=== PATIENT | female | born 1945 | race African-American/Black ===

== ENCOUNTER 2019-07-19 20:29 | Inpatient (IN) | payer MEDICARE, MEDICAID ==
[~2019-07-19] VITALS: Ht 162.6 cm; Wt 103.5 kg
--- NOTE | 2019-07-19 20:45 | NUR ---
ED Nurse Note: pt presents to ED via ambulance, RA 70 for abd px, N/V/D. pt states that she has had 5 episodes of diarrhea today and her home property investor noticed bright red blood in her stool. pt c/o 02/19 bilat lower abd px. pt has bilat lower extremity weakness, and is bed bound.
[2019-07-19 20:58] VITALS: BP 118/65
[2019-07-19] MEDS ORDERED: Omnipaque-300 100ml vial INJ PRN (21:15)
[2019-07-19 21:53] LABS: HEMATOCRIT 27.7 % (37.0-47.0); HEMOGLOBIN 9.2 G/DL (12.0-16.0); MEAN CORPUSCULAR VOLUME 90 FL (80-99); PLATELET COUNT 138 K/UL (150-450); RED BLOOD COUNT 3.08 M/UL (4.20-5.40); RED CELL DISTRIBUTION WIDTH 12.7 % (11.6-14.8); WHITE BLOOD COUNT 13.1 K/UL (4.8-10.8)
[2019-07-19 22:04] LABS: ANION GAP 15 mmol/L (5-15); BLOOD UREA NITROGEN 45 mg/dL (7-18); CALCIUM 9.3 MG/DL (8.5-10.1); CARBON DIOXIDE 16 MMOL/L (21-32); CHLORIDE 108 MMOL/L (98-107); CREATININE 1.7 MG/DL (0.55-1.30); POTASSIUM 5.4 MMOL/L (3.5-5.1); SODIUM 139 MMOL/L (136-145)
[2019-07-19 22:10] LABS: INR 1.7 (0.9-1.1)
[2019-07-19 22:15] LABS: ALANINE AMINOTRANSFERASE 28 U/L (12-78); ALBUMIN 2.2 G/DL (3.4-5.0); ALBUMIN/GLOBULIN RATIO 0.4 (1.0-2.7); ALKALINE PHOSPHATASE 169 U/L (46-116); ASPARTATE AMINO TRANSFERASE 24 U/L (15-37); BILIRUBIN,TOTAL 0.3 MG/DL (0.2-1.0)
--- NOTE | 2019-07-19 22:25 | NUR ---
ED Nurse Note: pt trasnported down to CT via junior
[2019-07-19] MEDS ORDERED: Pantoprazole Inj IVP ONE (22:30)
--- NOTE | 2019-07-19 23:15 | Diagnostic Imaging Report ---
INDICATION: Abdominal pain TECHNIQUE: Continuous helical transaxial imaging of the abdomen and pelvis was obtained from the lung bases to the pubic symphysis. No intravenous contrast was administered. Coronal 2-D reformats were also obtained. Automatic Exposure Control was utilized. Total Dose length Product (DLP): 2121.[address] Dose Index Volume (CTDIvol): 34.6 mGy Comparison: none FINDINGS: Lungs: Streaky, mostly linear appearing densities noted at the left lung base associated with bronchiectasis and some retraction suggestive of scarring.. Trace pericardial fluid noted. Liver: Unremarkable Gallbladder/biliary system: There are suspected gallstones. No biliary ductal dilatation is identified.. Spleen: Unremarkable Pancreas: Unremarkable Kidneys: There is perinephric stranding present nonspecific. There is no evidence of hydronephrosis or radiopaque stones.. Adrenal glands: Unremarkable Bowel: There is a diverticulosis present within the left hemicolon. No definite diverticulitis appreciated. The appendix is normal. There is no evidence of bowel obstruction. Bladder: Unremarkable Aorta/IVC: Mild calcification of the aorta and iliac arteries demonstrated. IVC is relatively collapsed. Peritoneum: There is no free fluid. The uterus is enlarged secondary to calcified uterine fibroids the largest of which is on the left side measuring about 5 cm.. Bones: There is narrowing of intervertebral discs and accompanying endplate osteophyte formation. Hypertrophied facet joints also demonstrated. There is a slight convexity of the lumbar spine to the left. This could be positional or related to scoliosis. Generalized osteopenia noted. IMPRESSION: Gallstones suspected. Diverticulosis of colon. No definite diverticulitis. Perinephric stranding left worse than right, nonspecific. Arterial vascular disease Calcified uterine fibroids Degenerative changes of the spine as discussed above. Scarring at the left lung base. [facility] has communicated the preliminary results to the Emergency Department. Their findings are largely concordant with this report. Note: Evaluation of solid organs is limited on non contrast imaging. The CT scanner at [facility] is accredited by the [employer] and the scans are performed using dose optimization techniques as appropriate to a performed exam including Automatic Exposure control.
[2019-07-19 23:31] LABS: APPEARANCE,URINE CLOUDY; BILIRUBIN, URINE 1+ (NEGATIVE); GLUCOSE, URINE (UA) NEGATIVE (NEGATIVE); KETONES,URINE 1+ (NEGATIVE); LEUKOCYTE ESTERASE ,URINE 3+ (NEGATIVE); NITRITE,URINE NEGATIVE (NEGATIVE); PH,URINE 5 (4.5-8.0); PROTEIN,URINE 4+ (NEGATIVE); UROBILINOGEN,URINE 1 MG/DL (0.0-1.0)
[2019-07-19 23:32] LABS: COLOR,URINE YELLOW
--- NOTE | 2019-07-19 23:45 | NUR ---
ED Nurse Note: pt's grandson is at bedside
--- NOTE | 2019-07-19 23:47 | Diagnostic Imaging Report ---
Indication: Dyspnea Comparison: None A single view chest radiograph was obtained. Findings: There is obscuring of the lung bases due to soft tissue. Bone volumes appear low. The heart is probably enlarged. There is slight blunting of the left costophrenic angle. Bones are osteopenic. Aorta is calcified. IMPRESSION: Possible small left pleural effusion Apparent cardiomegaly Limited evaluation as discussed
[2019-07-20] VITALS (7 sets, daily range): BP systolic 92–119; BP diastolic 44–72
--- NOTE | 2019-07-20 | NUR ---
ED Nurse Note: pt remains tachy at 130 and BP is trending downward, currently 95/67, ERMD notified
--- NOTE | 2019-07-20 00:22 | NUR ---
ED Nurse Note: pt transferred to trauma room, BP 101/72
[2019-07-20] MEDS ORDERED: Metoprolol Tartrate 5mg/5ml Inj IVP ONE ×2 (00:30→01:00)
[2019-07-20] MEDS ORDERED: DITROPAN10 MG ORAL (02:48)
[2019-07-20] MEDS ORDERED: HYDROCHLOROTHIA25 MG ORAL (02:48)
[2019-07-20] MEDS ORDERED: AMLODIPINE BESYL5 MG ORAL (02:48)
[2019-07-20] MEDS ORDERED: LOSARTAN POTASS50 MG ORAL (02:48)
[2019-07-20] MEDS ORDERED: SIMVASTATIN40 MG ORAL (02:48)
--- NOTE | 2019-07-20 03:06 | NUR ---
ED Nurse Note: report given to KULDEEP Stacy.
--- NOTE | 2019-07-20 03:20 | NUR ---
NURSE NOTES: Received report from KULDEEP Stacy- pt. received transferred from ER- pt. in bed awake- confused- appears to be alert to name. book sorter placed, no Signs or symptoms of acute cardiac or respiratory distress noted, bed alarm on, side rails up x's 3 and safety brakes engaged, call light within easy reach, dl at bedside, full body assessment- skin intact- but pt. has resurfaced wound to rt. buttocks area, bed bath given- comfort measure provided, RAC 20G and LAC 20G both IVs intact and patent, pt. teaching done- and pt. oriented to room, safety measures continued, will continue with plan of care. Addendum: 07/20/19 at 0439 by GONZALEZ YUAN RN RN no evidence of bleeding noted.
--- NOTE | 2019-07-20 03:42 | NUR ---
NURSE NOTES: per potline monitor pt. appears to have converted to A.Fib- assessed pt. no distress or change noted- EKG done shows Sinus Tachycardia- will notify
--- NOTE | 2019-07-20 03:48 | Emergency Room Report ---
History of Present Illness General Chief Complaint: Abdominal Pain Source: Patient Present Illness HPI 74-year-old female presents ED for evaluation. Brought in by EMS from home. Complaining of abdominal pain with vomiting and diarrhea x1 week. Notes watery loose stools. Pain is sharp, 9 out of 10, nonradiating. States that today she noticed blood in her stool. Tachycardic. States she takes blood thinners. Does not recall the name. Denies fevers or chills. Denies chest pain. No other aggravating relieving factors. Denies any other associated symptoms Allergies: Uncoded Allergies: CODEIN (Allergy, Unknown, 07/19/19) Patient History Past Medical History: DM, HTN Past Surgical History: none Pertinent Family History: none Social History: Denies: smoking, alcohol use, drug use Now: No Immunizations: UTD Reviewed Nursing Documentation: PMH: Agreed; PSxH: Agreed Nursing Documentation-PMH Hx Hypertension: Yes Hx Diabetes: Yes Review of Systems All Other Systems: negative except mentioned in HPI Physical Exam Vital Signs Date Time Temp Pulse Resp B/P (MAP) Pulse Ox O2 Delivery O2 Flow Rate FiO2 07/19/19 20:21 98.2 112 18 118/65 (82) 98 Room Air 07/20/19 00:53 2.0 Sp02 EP Interpretation: reviewed, normal General Appearance: alert, GCS 15, non-toxic, mild distress, obese Head: normocephalic, atraumatic Eyes: bilateral eye normal inspection, bilateral eye PERRL ENT: hearing grossly normal, normal pharynx, no angioedema, normal voice Neck: full range of motion, supple/symm/no masses Respiratory: chest non-tender, lungs clear, normal breath sounds, speaking full sentences Cardiovascular #1: no edema, tachycardia Cardiovascular #2: 2+ carotid (R), 2+ carotid (L), 2+ radial (R), 2+ radial (L) , 2+ dorsalis pedis (R), 2+ dorsalis pedis (L) Gastrointestinal: normal bowel sounds, soft, non-distended, no guarding, no rebound, tenderness Rectal: deferred Genitourinary: normal inspection, no CVA tenderness Musculoskeletal: back normal, normal range of motion, gait/station normal, non- tender Neurologic: alert, motor strength/tone normal, oriented x3, sensory intact, responsive, speech normal Psychiatric: judgement/insight normal, memory normal, mood/affect normal, no suicidal/homicidal ideation Reflexes: 3+ bicep (R), 3+ bicep (L), 3+ tricep (R), 3+ tricep (L), 3+ knee (R) , 3+ knee (L) Skin: other - see nursing skin notes Lymphatic: no adenopathy Procedures Critical Care Time Critical Care Time i. I feel this is a highly complex case requiring extensive working including EKG/Rhythm strip, Xray/CT/US, Blood/urine lab work, repeat exams while in ED, and administration of strong opiates/narcotics for pain control, admission to hospital or close patient follow up. Total time: 60 min bedside evaluation and treatment excludes procedures (EKG). Reason for critical care: acidosis, sepsis, hypotension, colitis, atrial fibrillation Possible complications: hypotension, hypertension, ND, shock, arrhythmias, metabolic acidosis, end organ damage, respiratory failure. Interventions: Labs, IV fluids, EKG, chest x-ray, CT, 30 cc/kg fluid bolus. Trendelenburg, Lopressor, broad-spectrum antibiotics, ABG Course: Presenting with abdominal pain, diarrhea, blood in stool. On blood thinners. Labs show leukocytosis. BUN/creatinine elevated. Lactic elevated. UA positive. INR elevated. CT shows near lobe atelectasis. Chest x-ray shows retrocardiac consolidation. Initially hypotensive. Improved with IV fluid boluses. Trendelenburg. Developed A. fib with RVR. Given Lopressor with cardioversion achieved. Given broad-spectrum antibiotics. ABG shows acidosis. Consultations: nursing staff, EMS, family Performed by: Dr Loco Tolerated well condition = serious j. because of unstable vital signs this patient had a condition that could potentially threaten life or limb. I feel this is a critical patient who required my full attention while patient was considered critical. Total Critical Care Time excluding procedures was greater than 60 minutes Medical Decision Making Diagnostic Impression: Primary Impression: Colitis Additional Impressions: LGI bleed Sepsis Qualified Codes: A41.9 - Sepsis, unspecified organism Renal insufficiency Atrial fibrillation Qualified Codes: I48.91 - Unspecified atrial fibrillation Pneumonia Qualified Codes: J18.9 - Pneumonia, unspecified organism ER Course Hospital Course 74 yo f presents with diarrhea, blood in stool Differential diagnoses include: UGIB, LGIB, colitis, sepsis Clinical course Patient placed on stretcher. piling setter. After initial history and physical I ordered labs, IV fluids, EKG, CXR, CT Labs - noted leukocytosis, Hb/Hct stable. INR 1.7. BUN/Cr elevated. lactic 2.9 , UA+ bacteria EKG - sinus tachycardia no acute ischemic changes interpreted by me CXR - retrocardiac opacity CT A/P - no acute process, L posterior lobe consolidation On reassessment patient became tachycardic and hypotensive. EKG shows A. fib with RVR. Given Lopressor with cardioversion. Given 30 cc/kg fluid bolus. BP slowly improving. Given broad-spectrum antibiotics. Patient tachypneic. ABG performed. Shows acidosis but metabolic with compensation noted. O2 sats normal. Patient showing no signs of respiratory distress. Patient has [employer] insurance however not consider patient safe for transport at this time. Will admit here. Case discussed with Dr. Puri and he agreed to accept the patient to his service for further care and support I feel this is a highly complex case requiring extensive working including EKG/ Rhythm strip, Xray/CT/US, Blood/urine lab work, repeat exams while in ED, and administration of strong opiates/narcotics for pain control, admission to hospital or close patient follow up. Diagnosis - colitis, LGIB, sepsis, renal insufficiency, atrial fibrillation, pneumonia Patient admitted to telemetry in serious condition Labs Test 07/19/19 21:10 07/19/19 23:00 07/19/19 23:22 07/20/19 01:22 White Blood Count 13.1 K/UL (4.8-10.8) Red Blood Count 3.08 M/UL (4.20-5.40) Hemoglobin 9.2 G/DL (12.0-16.0) Hematocrit 27.7 % (37.0-47.0) Mean Corpuscular Volume 90 FL (80-99) Mean Corpuscular Hemoglobin 29.9 PG (27.0-31.0) Mean Corpuscular Hemoglobin Concent 33.2 G/DL (32.0-36.0) Red Cell Distribution Width 12.7 % (11.6-14.8) Platelet Count 138 K/UL (150-450) Mean Platelet Volume 7.2 FL (6.5-10.1) Neutrophils (%) (Auto) % (45.0-75.0) Lymphocytes (%) (Auto) % (20.0-45.0) Monocytes (%) (Auto) % (1.0-10.0) Eosinophils (%) (Auto) % (0.0-3.0) Basophils (%) (Auto) % (0.0-2.0) Differential Total Cells Counted 100 Neutrophils % (Manual) 78 % (45-75) Lymphocytes % (Manual) 10 % (20-45) Monocytes % (Manual) 3 % (1-10) Eosinophils % (Manual) 0 % (0-3) Basophils % (Manual) 1 % (0-2) Band Neutrophils 8 % (0-8) Platelet Estimate Decreased Platelet Morphology Normal Hypochromasia 1+ Anisocytosis 1+ Prothrombin Time 18.0 SEC (9.30-11.50) Prothromb Time International Ratio 1.7 (0.9-1.1) Activated Partial Thromboplast Time 84 SEC (23-33) Sodium Level 139 MMOL/L (136-145) Potassium Level 5.4 MMOL/L (3.5-5.1) Chloride Level 108 MMOL/L (98-107) Carbon Dioxide Level 16 MMOL/L (21-32) Anion Gap 15 mmol/L (5-15) Blood Urea Nitrogen 45 mg/dL (7-18) Creatinine 1.7 MG/DL (0.55-1.30) Estimat Glomerular Filtration Rate mL/min (>60) Glucose Level 286 MG/DL (74-106) Lactic Acid Level 2.90 mmol/L (0.4-2.0) 2.70 mmol/L (0.66-2.22) Calcium Level 9.3 MG/DL (8.5-10.1) Total Bilirubin 0.3 MG/DL (0.2-1.0) Aspartate Amino Transf (AST/SGOT) 24 U/L (15-37) Alanine Aminotransferase (ALT/SGPT) 28 U/L (12-78) Alkaline Phosphatase 169 U/L (46-116) Pro-B-Type Natriuretic Peptide 3323 pg/mL (0-125) Total Protein 7.4 G/DL (6.4-8.2) Albumin 2.2 G/DL (3.4-5.0) Globulin 5.2 g/dL Albumin/Globulin Ratio 0.4 (1.0-2.7) Urine Color Yellow Urine Appearance Cloudy Urine pH 5 (4.5-8.0) Urine Specific [place] 1.015 (1.005-1.035) Urine Protein 4+ (NEGATIVE) Urine Glucose (UA) Negative (NEGATIVE) Urine Ketones 1+ (NEGATIVE) Urine Blood 5+ (NEGATIVE) Urine Nitrite Negative (NEGATIVE) Urine Bilirubin 1+ (NEGATIVE) Urine Ictotest Negative (NEGATIVE) Urine Urobilinogen 1 MG/DL (0.0-1.0) Urine Leukocyte Esterase 3+ (NEGATIVE) Urine RBC Tntc /HPF (0 - 2) Urine WBC Tntc /HPF (0 - 2) Urine Squamous Epithelial Cells Moderate /LPF (NONE/OCC) Urine Bacteria Many /HPF (NONE) Arterial Blood pH 7.227 (7.350-7.450) Arterial Blood Partial Pressure CO2 36.0 mmHg (35.0-45.0) Arterial Blood Partial Pressure O2 108.4 mmHg (75.0-100.0) Arterial Blood HCO3 14.6 mmol/L (22.0-26.0) Arterial Blood Oxygen Saturation 97.3 % (95-100) Arterial Blood Base Excess -12.0 (-2-2) Chato Test Positive EKG Diagnostic Results Rate: tachycardiac Rhythm: other - afib with RVR ST Segments: no acute changes ASA given to the pt in ED: No Rhythm Strip Diag. Results EP Interpretation: yes Rhythm: no PVC's, no ectopy Chest X-Ray Diagnostic Results Chest X-Ray Diagnostic Results : Chest X-Ray Ordered: Yes # of Views/Limited/Complete: 1 View Indication: Shortness of Breath EP Interpretation: Yes Interpretation: no effusion, no pneumothorax, other - retrocardiac opacity Impression: Other - PNA Electronically Signed by: Electronically signed by Gerardo Loco MD CT/MRI/US Diagnostic Results CT/MRI/US Diagnostic Results : Imaging Test Ordered: CT A/P Impression CT ABDOMEN & PELVIS With Contrast: No prior exam for comparison. Diverticulosis with no signs of diverticulitis. Normal appendix. Dystrophic calcification within the uterus measuring 4.1 x 4.7 cm consistent with calcified uterine fibroid. Additional nodularities through the uterus consistent with smaller noncalcified uterine fibroids. Diffuse degenerative disease of the spine. Left posterior lower lobe atelectasis. Remainder of the lungs are clear. Normal cardiac size with coronary artery calcifications. Large hiatal hernia. High density in the gallbladder which could represent sludge versus tiny stones. Unremarkable liver, spleen and pancreas. Normal adrenal glands. Bilateral perinephric stranding, more severe on the left compared to the right. No evidence of hydronephrosis bilaterally. Last Vital Signs Date Time Temp Pulse Resp B/P (MAP) Pulse Ox O2 Delivery O2 Flow Rate FiO2 07/20/19 01:05 115 104/48 07/20/19 01:05 31 100 Nasal Cannula 2.0 07/20/19 00:21 98.2 Status: improved Disposition: ADMITTED INPATIENT Condition: Serious Referrals: [facility] (PCP) Gerardo Loco MD Jul 20, 2019 03:48
--- NOTE | 2019-07-20 04:56 | NUR ---
NURSE NOTES: left message for DR. Puri, awaiting for call back for admission orders- per DR. Puri- he will call back.
--- NOTE | 2019-07-20 05:04 | NUR ---
NURSE NOTES: orders received by DR. Puri- orders read back and carried out.
--- NOTE | 2019-07-20 05:13 | NUR ---
NURSE NOTES: awaiting for dl Olivares to call back- to go over medication list.
--- NOTE | 2019-07-20 05:14 | NUR ---
NURSE NOTES: DR. Puri aware we will call back once grandson comes back to go over medication list- Also doctor made aware of potassium trending up.
[2019-07-20] MEDS ORDERED: D5 1/2NS 1,000 ML IV SCH ×2 (05:15→06:34)
[2019-07-20] MEDS ORDERED: ALPRAZOLAM0.25 M2 ORAL (06:24)
[2019-07-20] MEDS ORDERED: [UNRECOGNIZED DRUG - REMARK] (06:24)
[2019-07-20] MEDS ORDERED: blood thinner (06:24)
--- NOTE | 2019-07-20 06:27 | NUR ---
NURSE NOTES: per grandson Marshall- he spoke with Caregiver and she texted him pt. is also taking Alprazolam 0.25 mg BID and a blood thinner and medicine for Diabetes, but unknown of the names- will notify
--- NOTE | 2019-07-20 06:32 | NUR ---
NURSE NOTES: Left message for DR. Puri- to call back to go over pt.home medication list- Also left detailed message that pt. converted to A.fib- but EKG was done and showed Sinus Tachycardia- pt. remains stable- awaiting for call back from doctor.
[2019-07-20] MEDS ORDERED: Miralax 17gm pkt ORAL PRN (06:45)
[2019-07-20] MEDS ORDERED: Morphine Sulfate 2mg/ml Inj(IV/IM USE ONLY) IVP PRN (06:45)
[2019-07-20] MEDS ORDERED: Nitroglycerin Subl 0.4mg tab SL PRN (06:45)
--- NOTE | 2019-07-20 07:15 | NUR ---
HAND-OFF: Report given to Suhail Rn, pt. remains stable and no signs of distress noted- nurse aware to f/u with DR. Puri- regarding medication reconcile and that pt. had episode of A. Fib around 3:42 am today- but converted back to Sinus Tachycardia- EKG done shows ST.
--- NOTE | 2019-07-20 07:20 | NUR ---
NURSE NOTES: RECEIVED BED SIDE REPORT FROM SB [facility] OF [facility]. REC,D PT WITH HOB ELEVATED 45 DEGREE ,AWAKE AND ALERT TO NAME, SLURRED SPEECH.PT GRAM SON AT BED SIDE.FULL BODY ASSESSMENT DONE .PT REPOSITIONED IN BED Q2HRS TO PREVENT SKIN BREAK DOWN.PT IS NPO PER M.D ORDERS. PT REC,D IVF,S D51/2 NS @ 75CC/HRS CONNECTED ON RT Markel GONG# 20. IVF,S INFUSING WELL. WILL CONT TO MONITOR.
[2019-07-20 07:30] LABS: HEMATOCRIT 30.6 % (37.0-47.0); HEMOGLOBIN 9.8 G/DL (12.0-16.0); MEAN CORPUSCULAR VOLUME 92 FL (80-99); PLATELET COUNT 132 K/UL (150-450); RED BLOOD COUNT 3.35 M/UL (4.20-5.40); RED CELL DISTRIBUTION WIDTH 14.5 % (11.6-14.8); WHITE BLOOD COUNT 16.3 K/UL (4.8-10.8)
[2019-07-20] MEDS ORDERED: ALPRAZolam 0.5mg tab ORAL PRN (07:45)
[2019-07-20 07:46] LABS: ALANINE AMINOTRANSFERASE 22 U/L (12-78); ALBUMIN 1.8 G/DL (3.4-5.0); ALBUMIN/GLOBULIN RATIO 0.4 (1.0-2.7); ALKALINE PHOSPHATASE 190 U/L (46-116); ANION GAP 13 mmol/L (5-15); ASPARTATE AMINO TRANSFERASE 19 U/L (15-37); BILIRUBIN,TOTAL 0.3 MG/DL (0.2-1.0); BLOOD UREA NITROGEN 46 mg/dL (7-18); CALCIUM 8.2 MG/DL (8.5-10.1); CARBON DIOXIDE 14 MMOL/L (21-32); CHLORIDE 113 MMOL/L (98-107); CREATININE 1.7 MG/DL (0.55-1.30); PHOSPHORUS 2.1 MG/DL (2.5-4.9); POTASSIUM 5.1 MMOL/L (3.5-5.1); SODIUM 140 MMOL/L (136-145)
[2019-07-20] MEDS ORDERED: Promethazine Plain 6.25mg/5ml ORAL PRN (10:15)
[2019-07-20] MEDS: D5 1/2NS 1,000 ML IV SCH ×2 (10:33→20:38)
--- NOTE | 2019-07-20 10:40 | NUR ---
*-* INSURANCE *-* ALL AVAILABLE CLINICALS HAVE BEEN FAXED TO: [employer] ([employer]) P- [phone] P: [phone] F- [phone]...REVIEW/CLINICAL
--- NOTE | 2019-07-20 10:50 | NUR ---
NURSE NOTES: DR CARRASQUILLO CAME TO SEE THE PT AND MADEV AWARE & NOTIFIED REGARDING MAGNESIUM LEVEL 1.3. DR CARRASQUILLO STATED THAT HE WILL ORDER MEDICATION TO INCREASED MAGNESIUM LEVEL. WILL CONT TO MONITOR.
--- NOTE | 2019-07-20 11:33 | General Progress Note ---
Assessment/Plan Assessment/Plan: Anemia leukocytosis low PLT RI DM elevated ALP low albumin coagulopathy gallstones diverticulosis ? GIB fu H&H anemia work up abd us stool ob colonoscopy possibly for Thursday if stable Subjective ROS Limited/Unobtainable: Yes Allergies: Coded Allergies: IODINE (Verified Allergy, Severe, itching/ swelling, 07/20/19) PENICILLINS (Verified Allergy, Severe, SOB/ swelling, 07/20/19) PROPOFOL (Verified Allergy, Severe, Anxiety, 07/20/19) chest feels like on fire SULFA (SULFONAMIDE ANTIBIOTICS) (Verified Allergy, Severe, hives, 07/20/19) CODEINE (Verified Allergy, Unknown, 07/20/19) Objective Last 24 Hour Vital Signs Date Time Temp Pulse Resp B/P (MAP) Pulse Ox O2 Delivery O2 Flow Rate FiO2 07/20/19 09:00 106 92/59 07/20/19 08:00 100.2 106 26 92/59 (70) 96 07/20/19 04:00 98.7 115 18 117/72 (87) 98 07/20/19 04:00 Nasal Cannula 3.0 07/20/19 04:00 3.0 07/20/19 03:47 Nasal Cannula 3.0 07/20/19 03:42 121 07/20/19 03:15 98.2 120 31 133/89 100 Nasal Cannula 2.0 07/20/19 01:05 115 104/48 07/20/19 01:05 107 31 119/44 100 Nasal Cannula 2.0 07/20/19 00:53 115 30 104/48 99 Nasal Cannula 2.0 07/20/19 00:34 126 101/72 07/20/19 00:21 98.2 126 18 101/72 98 Room Air 07/19/19 20:58 98.2 18 118/65 98 Room Air 07/19/19 20:58 112 18 Room Air 07/19/19 20:21 98.2 112 18 118/65 (82) 98 Room Air Intake and Output 07/19/19 07/20/19 19:00 07:00 Intake Total 18 ml Balance 18 ml Intake Oral 0 ml IV Total 18 ml # Voids 2 # Bowel Movements 3 Laboratory Tests 07/19/19 21:10: White Blood Count 13.1H, Red Blood Count 3.08L, Hemoglobin 9.2L, Hematocrit 27.7L, Mean Corpuscular Volume 90, Mean Corpuscular Hemoglobin 29.9, Mean Corpuscular Hemoglobin Concent 33.2, Red Cell Distribution Width 12.7, Platelet Count 138L, Mean Platelet Volume 7.2, Neutrophils (%) (Auto) , Lymphocytes (%) ( Auto) , Monocytes (%) (Auto) , Eosinophils (%) (Auto) , Basophils (%) (Auto) , Differential Total Cells Counted 100, Neutrophils % (Manual) 78H, Lymphocytes % (Manual) 10L, Monocytes % (Manual) 3, Eosinophils % (Manual) 0, Basophils % ( Manual) 1, Band Neutrophils 8, Platelet Estimate DecreasedL, Platelet Morphology Normal, Hypochromasia 1+, Anisocytosis 1+, Prothrombin Time 18.0H, Prothromb Time International Ratio 1.7H, Activated Partial Thromboplast Time 84H , Sodium Level 139, Potassium Level 5.4H, Chloride Level 108H, Carbon Dioxide Level 16L, Anion Gap 15, Blood Urea Nitrogen 45H, Creatinine 1.7H, Estimat Glomerular Filtration Rate , Glucose Level 286H, Lactic Acid Level 2.90H, Calcium Level 9.3, Total Bilirubin 0.3, Aspartate Amino Transf (AST/SGOT) 24, Alanine Aminotransferase (ALT/SGPT) 28, Alkaline Phosphatase 169H, Pro-B-Type Natriuretic Peptide 3323H, Total Protein 7.4, Albumin 2.2L, Globulin 5.2, Albumin/Globulin Ratio 0.4L 07/19/19 23:00: Urine Color Yellow, Urine Appearance Cloudy, Urine pH 5, Urine Specific [place] 1.015, Urine Protein 4+H, Urine Glucose (UA) Negative, Urine Ketones 1+H, Urine Blood 5+H, Urine Nitrite Negative, Urine Bilirubin 1+H, Urine Ictotest Negative , Urine Urobilinogen 1H, Urine Leukocyte Esterase 3+H, Urine RBC TntcH, Urine WBC TntcH, Urine Squamous Epithelial Cells ModerateH, Urine Bacteria ManyH 07/19/19 23:22: Lactic Acid Level 2.70H 07/20/19 01:22: Arterial Blood pH 7.227*L, Arterial Blood Partial Pressure CO2 36.0, Arterial Blood Partial Pressure O2 108.4H, Arterial Blood HCO3 14.6*L, Arterial Blood Oxygen Saturation 97.3, Arterial Blood Base Excess -12.0*L, Chato Test Positive 07/20/19 07:22: White Blood Count 16.3H, Red Blood Count 3.35L, Hemoglobin 9.8L, Hematocrit 30.6L, Mean Corpuscular Volume 92, Mean Corpuscular Hemoglobin 29.4, Mean Corpuscular Hemoglobin Concent 32.1, Red Cell Distribution Width 14.5, Platelet Count 132L, Mean Platelet Volume 6.0L, Neutrophils (%) (Auto) , Lymphocytes (%) (Auto) , Monocytes (%) (Auto) , Eosinophils (%) (Auto) , Basophils (%) (Auto) , Differential Total Cells Counted 100, Neutrophils % (Manual) 90H, Lymphocytes % (Manual) 5L, Monocytes % (Manual) 5, Eosinophils % (Manual) 0, Basophils % ( Manual) 0, Band Neutrophils 0, Platelet Estimate DecreasedL, Platelet Morphology Normal, Hypochromasia 2+, Anisocytosis 1+, Erythrocyte Sedimentation Rate 108H, Sodium Level 140, Potassium Level 5.1, Chloride Level 113H, Carbon Dioxide Level 14L, Anion Gap 13, Blood Urea Nitrogen 46H, Creatinine 1.7H, Estimat Glomerular Filtration Rate , Glucose Level 288H, Lactic Acid Level 2.80H , Calcium Level 8.2L, Phosphorus Level 2.1L, Magnesium Level 1.3L, Total Bilirubin 0.3, Aspartate Amino Transf (AST/SGOT) 19, Alanine Aminotransferase ( ALT/SGPT) 22, Alkaline Phosphatase 190H, Total Protein 6.2L, Albumin 1.8L, Globulin 4.4, Albumin/Globulin Ratio 0.4L 07/20/19 11:00: Lactic Acid Level [Pending] Height (Feet): 5 Height (Inches): 4.00 Weight (Pounds): 229 General Appearance: confused EENT: normal ENT inspection Neck: supple Cardiovascular: normal rate Respiratory/Chest: decreased breath sounds Abdomen: normal bowel sounds, non tender, soft Extremities: non-tender Haile Kaba MD Jul 20, 2019 11:33
--- NOTE | 2019-07-20 12:21 | History & Physical ---
History and Physical History & Physicial Dictated for Int Med-DR Puri no. [id number]. Kendrick Aguilar MD Jul 20, 2019 12:21
[2019-07-20] MEDS: NovoLOG Insulin Flexpen SUBQ SCH ×3 (12:47→21:28)
--- NOTE | 2019-07-20 13:08 | NUR ---
NURSE NOTES:NURSE NOTES: ESCORTED PT VIA BED ON STABLE CONDITIONS TO TELEMETRY UNIT ROOM 206 BED 2 REPORT GIVEN TO JUAN MARINE ARCHITECT OF TELEMETRY UNIT.
--- NOTE | 2019-07-20 13:08 | NUR ---
NURSE NOTES: Patient transferred from [facility] via hospital bed, Awake, on 3L nasal canula, no acute distress/SOB noted. Patient has two IV access, Right AC and Left AC 20 gauge. D5 1/2 NS running @ 75cc/hr. No infiltration or bleeding noted. Belonging check done with transferring nurse per protocol. Old healed wound noted on sacral. Bed in low position and locked, call light within reach, Bed alarm is on, side-rails up x3. Encouraged to use call light when needed. Will continue plan of care.
--- NOTE | 2019-07-20 14:20 | Consultation ---
History of Present Illness General Date patient seen: Jul 20, 2019 Chief Complaint: Abdominal Pain Present Illness HPI 74-year-old female presents ED for evaluation. Brought in by EMS from home. Complaining of abdominal pain with vomiting and diarrhea x1 week. Notes watery loose stools. Pain is sharp, 9 out of 10, nonradiating. States that today she noticed blood in her stool. Tachycardic. States she takes blood thinners. Does not recall the name. Denies fevers or chills. Denies chest pain. No other aggravating relieving factors. Denies any other associated symptoms Allergies: Coded Allergies: IODINE (Verified Allergy, Severe, itching/ swelling, 07/20/19) PENICILLINS (Verified Allergy, Severe, SOB/ swelling, 07/20/19) PROPOFOL (Verified Allergy, Severe, Anxiety, 07/20/19) chest feels like on fire SULFA (SULFONAMIDE ANTIBIOTICS) (Verified Allergy, Severe, hives, 07/20/19) CODEINE (Verified Allergy, Unknown, 07/20/19) Medication History Scheduled Amlodipine Besylate* (Amlodipine Besylate*), 5 MG ORAL DAILY, (Reported) Hydrochlorothiazide* (Hydrochlorothiazide*), 25 MG ORAL DAILY, (Reported) Simvastatin (Zocor), 40 MG ORAL BEDTIME, (Reported) Scheduled PRN Alprazolam (Alprazolam), 0.25 MG ORAL TID PRN for For Anxiety, (Reported) Miscellaneous Medications [blood thinner], (Reported) [dibetes medication], (Reported) Discontinued Medications Losartan Potassium* (Losartan Potassium*), 100 MG ORAL DAILY, (Reported) Discontinued Reason: discontinued med Oxybutynin Chloride (Oxybutynin Chloride), 15 MG ORAL DAILY, (Reported) Discontinued Reason: Medication dose changed Patient History Healthcare decision maker unk Resuscitation status Full Code Advanced Directive on File Physical Exam General Appearance: WD/WN, no apparent distress Lines, tubes and drains: peripheral HEENT: normocephalic, atraumatic Neck: non-tender, normal alignment Respiratory/Chest: chest wall non-tender, lungs clear Breasts: no masses Cardiovascular/Chest: normal peripheral pulses Abdomen: normal bowel sounds, non tender Genitourinary/Rectal: normal genital exam, normal rectal exam Extremities: normal range of motion Skin Exam: normal pigmentation 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 normal Lymphatic: anterior cervical Last 24 Hour Vital Signs Date Time Temp Pulse Resp B/P (MAP) Pulse Ox O2 Delivery O2 Flow Rate FiO2 07/20/19 12:00 99.0 111 30 103/53 (70) 97 07/20/19 12:00 92 07/20/19 12:00 Nasal Cannula 3.0 07/20/19 12:00 3.0 07/20/19 09:00 106 92/59 07/20/19 08:00 106 07/20/19 08:00 Nasal Cannula 3.0 07/20/19 08:00 3.0 07/20/19 08:00 100.2 106 26 92/59 (70) 96 07/20/19 04:00 98.7 115 18 117/72 (87) 98 07/20/19 04:00 Nasal Cannula 3.0 07/20/19 04:00 3.0 07/20/19 03:47 Nasal Cannula 3.0 07/20/19 03:42 121 07/20/19 03:15 98.2 120 31 133/89 100 Nasal Cannula 2.0 07/20/19 01:05 115 104/48 07/20/19 01:05 107 31 119/44 100 Nasal Cannula 2.0 07/20/19 00:53 115 30 104/48 99 Nasal Cannula 2.0 07/20/19 00:34 126 101/72 07/20/19 00:21 98.2 126 18 101/72 98 Room Air 07/19/19 20:58 98.2 18 118/65 98 Room Air 07/19/19 20:58 112 18 Room Air 07/19/19 20:21 98.2 112 18 118/65 (82) 98 Room Air Intake and Output 07/19/19 07/20/19 18:59 06:59 Intake Total 18 ml Balance 18 ml Intake Oral 0 ml IV Total 18 ml # Voids 2 # Bowel Movements 3 Laboratory Tests Test 07/19/19 21:10 07/19/19 23:00 07/19/19 23:22 07/20/19 01:22 White Blood Count 13.1 K/UL (4.8-10.8) H Red Blood Count 3.08 M/UL (4.20-5.40) L Hemoglobin 9.2 G/DL (12.0-16.0) L Hematocrit 27.7 % (37.0-47.0) L Mean Corpuscular Volume 90 FL (80-99) Mean Corpuscular Hemoglobin 29.9 PG (27.0-31.0) Mean Corpuscular Hemoglobin Concent 33.2 G/DL (32.0-36.0) Red Cell Distribution Width 12.7 % (11.6-14.8) Platelet Count 138 K/UL (150-450) L Mean Platelet Volume 7.2 FL (6.5-10.1) Neutrophils (%) (Auto) % (45.0-75.0) Lymphocytes (%) (Auto) % (20.0-45.0) Monocytes (%) (Auto) % (1.0-10.0) Eosinophils (%) (Auto) % (0.0-3.0) Basophils (%) (Auto) % (0.0-2.0) Differential Total Cells Counted 100 Neutrophils % (Manual) 78 % (45-75) H Lymphocytes % (Manual) 10 % (20-45) L Monocytes % (Manual) 3 % (1-10) Eosinophils % (Manual) 0 % (0-3) Basophils % (Manual) 1 % (0-2) Band Neutrophils 8 % (0-8) Platelet Estimate Decreased L Platelet Morphology Normal Hypochromasia 1+ Anisocytosis 1+ Prothrombin Time 18.0 SEC (9.30-11.50) H Prothromb Time International Ratio 1.7 (0.9-1.1) H Activated Partial Thromboplast Time 84 SEC (23-33) H Sodium Level 139 MMOL/L (136-145) Potassium Level 5.4 MMOL/L (3.5-5.1) H Chloride Level 108 MMOL/L (98-107) H Carbon Dioxide Level 16 MMOL/L (21-32) L Anion Gap 15 mmol/L (5-15) Blood Urea Nitrogen 45 mg/dL (7-18) H Creatinine 1.7 MG/DL (0.55-1.30) H Estimat Glomerular Filtration Rate mL/min (>60) Glucose Level 286 MG/DL (74-106) H Lactic Acid Level 2.90 mmol/L (0.4-2.0) H 2.70 mmol/L (0.66-2.22) H Calcium Level 9.3 MG/DL (8.5-10.1) Total Bilirubin 0.3 MG/DL (0.2-1.0) Aspartate Amino Transf (AST/SGOT) 24 U/L (15-37) Alanine Aminotransferase (ALT/SGPT) 28 U/L (12-78) Alkaline Phosphatase 169 U/L (46-116) H Pro-B-Type Natriuretic Peptide 3323 pg/mL (0-125) H Total Protein 7.4 G/DL (6.4-8.2) Albumin 2.2 G/DL (3.4-5.0) L Globulin 5.2 g/dL Albumin/Globulin Ratio 0.4 (1.0-2.7) L Urine Color Yellow Urine Appearance Cloudy Urine pH 5 (4.5-8.0) Urine Specific [place] 1.015 (1.005-1.035) Urine Protein 4+ (NEGATIVE) H Urine Glucose (UA) Negative (NEGATIVE) Urine Ketones 1+ (NEGATIVE) H Urine Blood 5+ (NEGATIVE) H Urine Nitrite Negative (NEGATIVE) Urine Bilirubin 1+ (NEGATIVE) H Urine Ictotest Negative (NEGATIVE) Urine Urobilinogen 1 MG/DL (0.0-1.0) H Urine Leukocyte Esterase 3+ (NEGATIVE) H Urine RBC Tntc /HPF (0 - 2) H Urine WBC Tntc /HPF (0 - 2) H Urine Squamous Epithelial Cells Moderate /LPF (NONE/OCC) H Urine Bacteria Many /HPF (NONE) H Arterial Blood pH 7.227 (7.350-7.450) Arterial Blood Partial Pressure CO2 36.0 mmHg (35.0-45.0) Arterial Blood Partial Pressure O2 108.4 mmHg (75.0-100.0) H Arterial Blood HCO3 14.6 mmol/L (22.0-26.0) *L Arterial Blood Oxygen Saturation 97.3 % (95-100) Arterial Blood Base Excess -12.0 (-2-2) *L Chato Test Positive Test 07/20/19 07:22 07/20/19 11:00 White Blood Count 16.3 K/UL (4.8-10.8) H Red Blood Count 3.35 M/UL (4.20-5.40) L Hemoglobin 9.8 G/DL (12.0-16.0) L Hematocrit 30.6 % (37.0-47.0) L Mean Corpuscular Volume 92 FL (80-99) Mean Corpuscular Hemoglobin 29.4 PG (27.0-31.0) Mean Corpuscular Hemoglobin Concent 32.1 G/DL (32.0-36.0) Red Cell Distribution Width 14.5 % (11.6-14.8) Platelet Count 132 K/UL (150-450) L Mean Platelet Volume 6.0 FL (6.5-10.1) L Neutrophils (%) (Auto) % (45.0-75.0) Lymphocytes (%) (Auto) % (20.0-45.0) Monocytes (%) (Auto) % (1.0-10.0) Eosinophils (%) (Auto) % (0.0-3.0) Basophils (%) (Auto) % (0.0-2.0) Differential Total Cells Counted 100 Neutrophils % (Manual) 90 % (45-75) H Lymphocytes % (Manual) 5 % (20-45) L Monocytes % (Manual) 5 % (1-10) Eosinophils % (Manual) 0 % (0-3) Basophils % (Manual) 0 % (0-2) Band Neutrophils 0 % (0-8) Platelet Estimate Decreased L Platelet Morphology Normal Hypochromasia 2+ Anisocytosis 1+ Erythrocyte Sedimentation Rate 108 MM/HR (0-30) H Sodium Level 140 MMOL/L (136-145) Potassium Level 5.1 MMOL/L (3.5-5.1) Chloride Level 113 MMOL/L (98-107) H Carbon Dioxide Level 14 MMOL/L (21-32) L Anion Gap 13 mmol/L (5-15) Blood Urea Nitrogen 46 mg/dL (7-18) H Creatinine 1.7 MG/DL (0.55-1.30) H Estimat Glomerular Filtration Rate mL/min (>60) Glucose Level 288 MG/DL (74-106) H Lactic Acid Level 2.80 mmol/L (0.4-2.0) H 2.10 mmol/L (0.66-2.22) Calcium Level 8.2 MG/DL (8.5-10.1) L Phosphorus Level 2.1 MG/DL (2.5-4.9) L Magnesium Level 1.3 MG/DL (1.8-2.4) L Total Bilirubin 0.3 MG/DL (0.2-1.0) Aspartate Amino Transf (AST/SGOT) 19 U/L (15-37) Alanine Aminotransferase (ALT/SGPT) 22 U/L (12-78) Alkaline Phosphatase 190 U/L (46-116) H Total Protein 6.2 G/DL (6.4-8.2) L Albumin 1.8 G/DL (3.4-5.0) L Globulin 4.4 g/dL Albumin/Globulin Ratio 0.4 (1.0-2.7) L Microbiology Date/Time Source Procedure Growth Status 07/19/19 21:10 Nasal Nares - Final Complete 07/19/19 21:10 Nasal Nares - Final Complete 07/19/19 23:00 Stool Clostridium difficile Toxin Assay - Final Complete Height (Feet): 5 Height (Inches): 4.00 Weight (Pounds): 229 Medications Current Medications Medications (Trade) Dose Ordered Sig/Francy Route PRN Reason Start Time Stop Time Status Last Admin Dose Admin Acetaminophen (Tylenol) 650 mg Q4H PRN ORAL fever 07/20/19 06:45 08/19/19 06:44 Alprazolam (Xanax) 0.5 mg THREE TIMES A DAY PRN ORAL Agitation 07/20/19 07:45 07/27/19 07:44 07/20/19 10:32 Amlodipine Besylate (Norvasc) 5 mg DAILY ORAL 07/20/19 09:00 08/19/19 08:59 Atorvastatin Calcium (Lipitor) 20 mg BEDTIME ORAL 07/20/19 21:00 08/19/19 20:59 Ciprofloxacin 200 ml @ 200 mls/hr Q24H IV 07/20/19 22:00 07/27/19 21:59 Dextrose (Dextrose 50%) 25 ml Q30M PRN IV Hypoglycemia 07/20/19 06:45 08/19/19 06:44 Dextrose/Sodium Chloride 1,000 ml @ 75 mls/hr [id number] IV 07/20/19 10:00 08/19/19 09:59 07/20/19 10:33 Diphenhydramine HCl (Benadryl) 25 mg Q6H PRN ORAL Itching/Pruritis 07/20/19 06:45 08/19/19 06:44 Hydrochlorothiazide (Hydrodiuril) 25 mg DAILY ORAL 07/20/19 09:00 08/19/19 08:59 Insulin Aspart (NovoLOG) BEFORE MEALS AND HS SUBQ 07/20/19 11:30 08/19/19 11:29 07/20/19 12:47 Metronidazole 100 ml @ 100 mls/hr Q12HR IVPB 07/20/19 09:00 07/27/19 08:59 07/20/19 10:40 Morphine Sulfate (Morphine Sulfate) 2 mg Q4H PRN IVP severe Pain (Pain Scale 7-10) 07/20/19 06:45 07/27/19 06:44 Nitroglycerin (Ntg) 0.4 mg Q5M X 3 DOSES PRN SL Prn Chest Pain 07/20/19 06:45 08/19/19 06:44 Ondansetron HCl (Zofran) 4 mg Q6H PRN IVP Nausea & Vomiting 07/20/19 06:45 08/19/19 06:44 Polyethylene Glycol (Miralax) 17 gm HSPRN PRN ORAL Constipation 07/20/19 06:45 08/19/19 06:44 Promethazine HCl (Phenergan Plain) 6.25 mg Q6H PRN ORAL For Cough 07/20/19 10:15 08/19/19 10:14 Temazepam (Restoril) 15 mg HSPRN PRN ORAL Insomnia 07/20/19 06:45 07/27/19 06:44 Assessment/Plan Problem List: (1) Chronic anticoagulation ICD Codes: Z79.01 - lobsterman (current) use of anticoagulants SNOMED: 772652665 (2) LGI bleed ICD Codes: K92.2 - Gastrointestinal hemorrhage, unspecified SNOMED: 49289073 (3) Colitis ICD Codes: K52.9 - Noninfective gastroenteritis and colitis, unspecified SNOMED: 37221989 (4) Renal insufficiency ICD Codes: N28.9 - Disorder of kidney and ureter, unspecified SNOMED: 699074648, 989381609 Status: doing well, stable Assessment/Plan: NPO iv fluids check electrolytes echo cardiology evaluation monitor heart rate. GI evaluation prn symptomatic meds dvt prophylaxis, Alejandrina Acosta MD Jul 20, 2019 14:20
--- NOTE | 2019-07-20 15:26 | Diagnostic Imaging Report ---
Indication: Abdominal pain. Vomiting. Elevated liver function tests Technique: Grayscale and duplex Doppler imaging of the abdomen performed. Comparison: None Findings: The liver is unremarkable. Doppler interrogation of the main portal vein shows patency with hepatopedal, monophasic flow. There is no biliary ductal dilatation identified. Gallbladder is notable for a tiny focus of gallbladder sludge. No definite stones. Sonographic Thomas's is negative per technologist. There demonstrated part of the pancreas, aorta and IVC show no definite abnormalities but largely obscured by bowel gas. Both kidneys appear unremarkable. There is no hydronephrosis. IMPRESSION: No acute findings Gallbladder sludge
--- NOTE | 2019-07-20 17:45 | History and Physical Report ---
DATE OF ADMISSION: 07/20/2019 CHIEF COMPLAINT: The patient is a 74-year-old female, who presents with a chief complaint of abdominal pain and diarrhea. HISTORY OF PRESENT ILLNESS: The patient has a history of pulmonary embolism. The patient is currently on an anticoagulant. The patient does not know the name or the dosage of the anticoagulant. The patient states history of present illness began yesterday. The patient had three loose bowel movements. The patient is unsure whether not there was blood in the stool. The patient presented to [place] emergency room. The patient is admitted with diarrhea and possible gastrointestinal hemorrhage. REVIEW OF SYSTEMS: CONSTITUTIONAL: The patient denies weight loss or weight gain. The patient denies fevers or chills. HEENT: The patient denies ear or throat pain. The patient denies headache. CARDIOVASCULAR: The patient denies palpitations or chest pain. CHEST: The patient denies wheeze or shortness of breath. ABDOMEN: The patient complains of diarrhea and abdominal pain as above. The patient denies constipation, nausea, or vomiting. NEUROMUSCULAR: The patient denies seizures or generalized weakness. GENITOURINARY: The patient denies dysuria or increased frequency of urination. PAST MEDICAL HISTORY: Significant for: 1. Pulmonary embolism approximately one month ago, treated at [facility]. 2. Diabetes type 2. 3. Hypertension. PAST SURGICAL HISTORY: The patient denies. CURRENT MEDICATIONS: 1. Losartan 50 mg one tablet p.o. daily. 2. Oxybutynin 5 mg one tablet p.o. three times daily. 3. Simvastatin 40 mg p.o. nightly. 4. Hydrochlorothiazide 25 mg p.o. daily. 5. Amlodipine 5 mg p.o. daily. 6. Alprazolam 0.25 mg p.o. q.8 h. p.r.n. ALLERGIES: 1. Codeine. 2. Iodine contrast. 3. Penicillin. 4. Propofol 5. Sulfa drugs. SOCIAL HISTORY: The patient is single and lives alone. The patient denies tobacco or alcohol use. PHYSICAL EXAMINATION: VITAL SIGNS: Temperature 98.2, respirations 18, pulse 112, and blood pressure 118/65. Pulse oximetry 98% on room air. GENERAL: The patient is a well-developed and well-nourished female, in no apparent distress. HEENT: Eyes, pupils are equal and responsive to light and accommodation. Extraocular movements are intact. NECK: Supple without lymphadenopathy. CHEST: Lungs are clear to auscultation bilaterally without wheezes or rales. CARDIOVASCULAR: Regular rhythm and rate. S1-S2 are normal without murmurs, rubs, or gallops. ABDOMEN: Soft, diffusely tender with positive bowel sounds. No evidence of hepatosplenomegaly. Currently, no rebound or guarding noted. EXTREMITIES: Negative for clubbing, cyanosis, or edema. RECTAL/GENITAL: Not performed. NEUROLOGICAL: Cranial nerves II through XII are grossly intact without focal deficits. Motor strength is 5/5 bilaterally. Deep tendon reflexes are 2+ plantar. LABORATORY STUDIES: WBC 13.1, hemoglobin 9.2, hematocrit 27.7, and platelets 138,000. Sodium 139, potassium 5.4, chloride 108, CO2 16, BUN 45, and creatinine 1.7. Glucose . Pro-time 18.0, INR 1.7, PTT 84. Urinalysis showed 5+ blood, 3+ leukocyte esterase with wbc's too numerous to count. CT of the abdomen and pelvis revealed diverticulosis without definite diverticulitis. ASSESSMENT: This is a 74-year-old female with: 1. Abdominal pain. 2. Diarrhea. 3. Renal insufficiency. 4. Leukocytosis. 5. Diabetes type 2. 6. Hypertension. 7. History of pulmonary embolism. TREATMENT: 1. Abdominal pain/diarrhea. A Gastroenterology consultation has been obtained with Dr. Haile Kaba. Differential includes enterocolitis versus possible gastrointestinal hemorrhage. We will follow recommendations of Gastroenterology. The patient has been started empirically on ciprofloxacin and Flagyl for possible colitis. 2. Renal insufficiency. This may be secondary to diabetic nephropathy versus acute dehydration. The patient is currently receiving intravenous fluids. 3. Leukocytosis. 4. Diabetes type 2. A NovoLog sliding scale has been instituted. 5. Hypertension. Continue amlodipine as above. 6. History of pulmonary embolism. The patient is unsure of her anticoagulant. The patient is a [facility] patient. We are attempting to contact [facility] for dosage and name of anticoagulation. Kendrick Aguilar M.D. DR: RL JOB#: [id number] CC:
--- NOTE | 2019-07-20 19:11 | NUR ---
CASE MANAGEMENT: REVIEW 74 YEAR OLD FEMALE BIBA FROM HOME CC: ABD PAIN 02/19 . N/V/D SI: COLITIS . LOWER GI BLEED T 100.2 HR 115 RR 26 BP 92/59 SAT 96% NC/3L WBC 13.1 H/H 9.2/27.7 LACTIC ACID 2.90 IS: NS IVF BOLUS X1 CIPROFLOXACIN IV X1 METOPROLOL IV X1 D5 1/2 NS IVF BOLUS X1 PROTONIX IV X1 PATIENT ADMITTED TO TELEMETRY UNIT 07/20/2019 DCP: PATIENT IS FROM HOME
--- NOTE | 2019-07-20 20:09 | NUR ---
HAND-OFF: Report given to Mango/RN, Patient is in stable condition. Endorsed plan of care.
[2019-07-20] MEDS ORDERED: Atorvastatin 20mg tab ORAL SCH (21:00)
[2019-07-20] MEDS: Albuterol/Ipratropium 3ml neb HHN SCH (23:45)
[2019-07-21] VITALS: BP 135/76
[2019-07-21] MEDS: Albuterol/Ipratropium 3ml neb HHN SCH ×4 (03:50→16:40)
[2019-07-21 04:00] VITALS: BP 106/61
[2019-07-21] MEDS: NovoLOG Insulin Flexpen SUBQ SCH ×3 (06:21→17:12)
--- NOTE | 2019-07-21 07:15 | NUR ---
NURSE NOTES: Received report from Mango/RN, Patient is asleep, lying semi-mcintyre's, resting comfortably. On 3L nasal canula, No acute distress/SOB noted. IV on Right AC and left AC Patent and D5 1/2 NS running at 75cc/hr. Bed in low position and locked, Bed alarm is on, side-rails up x3. Call light within reach. Encouraged to use call light when needed. Will continue plan of care.
[2019-07-21 07:24] LABS: HEMOGLOBIN 8.8 G/DL (12.0-16.0); MEAN CORPUSCULAR VOLUME 92 FL (80-99); PLATELET COUNT 103 K/UL (150-450); RED BLOOD COUNT 2.94 M/UL (4.20-5.40); RED CELL DISTRIBUTION WIDTH 14.8 % (11.6-14.8); WHITE BLOOD COUNT 20.1 K/UL (4.8-10.8)
[2019-07-21 07:41] LABS: ALANINE AMINOTRANSFERASE 17 U/L (12-78); ALBUMIN 1.6 G/DL (3.4-5.0); ALBUMIN/GLOBULIN RATIO 0.4 (1.0-2.7); ALKALINE PHOSPHATASE 121 U/L (46-116); AMYLASE 13 U/L (25-115); ANION GAP 13 mmol/L (5-15); ASPARTATE AMINO TRANSFERASE 14 U/L (15-37); BILIRUBIN,TOTAL 0.2 MG/DL (0.2-1.0); BLOOD UREA NITROGEN 52 mg/dL (7-18); CALCIUM 8.3 MG/DL (8.5-10.1); CARBON DIOXIDE 15 MMOL/L (21-32); CHLORIDE 112 MMOL/L (98-107); CREATININE 1.7 MG/DL (0.55-1.30); POTASSIUM 4.4 MMOL/L (3.5-5.1); SODIUM 140 MMOL/L (136-145)
[2019-07-21 07:45] LABS: INR 1.5 (0.9-1.1)
[2019-07-21 07:56] LABS: % IRON SATURATION 8 % (15-50); IRON 9 ug/dL (50-175); TOTAL IRON BINDING CAPACITY 118 ug/dL (250-450)
[2019-07-21 08:00] VITALS: BP 99/47
--- NOTE | 2019-07-21 10:14 | NUR ---
CASE MANAGEMENT:REVIEW 07/21/19 SI: LGIB. COLITIS RENAL INSUFFICIENCY H/O PULMONARY EMBOLISM 98.2 111 20 99/47 96% ON 3L/NC WBC+20.1 H/H-8.8/27.0 PLT-103 BUN+52 CR+1.7 GLUCOSE+221 PT+16.0 INR+1.5 APTT+91 IS: IV MAG SULFATE Q1HRS X2 IV CIPRO Q24HRS IV FLAGYL Q12 IVF@75/HR HCTZ PO QD DUONEB HHN Q4HRS RTC : TELEMETRY STATUS PLAN: NEEDS TO TRANSFER TO [facility] SINCE THIS IS THEIR PATIENT. THEY ARE AWARE PATIENT IS OUT OF NET WORK FOLLOW H/H ABDOMINAL ULTRASOUND STOOL OB COLONOSCOPY THURSDAY IF STABLE Addendum: 07/21/19 at 1039 by CHRISTIN GAVIRIA LVN LVN PATIENT WAS INITIALLY ADMITTED TO STEP DOWN UNIT ROOM 242
--- NOTE | 2019-07-21 10:27 | NUR ---
*-* INSURANCE *-* ALL AVAILABLE CLINICALS HAVE BEEN FAXED TO: [facility] ([facility]) P- [phone] P: [phone] F- [phone]...REVIEW/CLINICAL
--- NOTE | 2019-07-21 10:56 | NUR ---
INSURANCE CALLED [facility] AND SPOKE WITH PIPE BLANKS CUT OFF SAW OPERATOR, NISHANT DILLARD THEY ARE ISSUING A DENIAL BECAUSE THEY ONLY AUTHORIZED 07/19/19 AND DID NOT RECEIVE ANY CLINICALS YESTERDAY 07/20/19 FAXED ALL CLINICALS TO [facility] [employer] COMMUNICATOR LEBRON MOFFETT PIPE BLANKS CUT OFF SAW OPERATOR IS NISHANT Addendum: 07/21/19 at 1108 by CHRISTIN GAVIRIA LVN LVN T:[phone] F:[phone] INITIAL AUTH NUMBER [id number] ALSO FAXED ORDER "STABLE FOR TRANSFER"
[2019-07-21] MEDS: D5 1/2NS 1,000 ML IV SCH (11:58)
[2019-07-21 12:00] VITALS: BP 111/55
--- NOTE | 2019-07-21 12:39 | Diagnostic Imaging Report ---
Indication: Bilateral leg pain and edema Technique: Grayscale and duplex images of the bilateral lower extremity veins Comparison: none Findings: Technologist, exam is technically difficult due to patient body habitus. Bilaterally, grayscale and duplex images demonstrate no evidence of intraluminal thrombus. Normal phasic Doppler waveforms, demonstrating normal augmentation response and no evidence of valvular insufficiency. Normal compressibility Impression: Negative for lower extremity deep venous thrombosis
--- NOTE | 2019-07-21 12:40 | Pulmonology Progress Note ---
Assessment/Plan Problems: (1) Gram negative sepsis (2) Sepsis (3) Chronic anticoagulation (4) LGI bleed (5) Colitis (6) Renal insufficiency (7) Atrial fibrillation Assessment/Plan h/h stable npo GI follow up prbc prn discussed with nurse at [place] and gave report. add gram negative coverage. Subjective ROS Limited/Unobtainable: No Interval Events: no new complains HEENT: Repors: no symptoms Respiratory: Reports: no symptoms Cardiovascular: Reports: no symptoms Allergies: Coded Allergies: IODINE (Verified Allergy, Severe, itching/ swelling, 07/20/19) PENICILLINS (Verified Allergy, Severe, SOB/ swelling, 07/20/19) PROPOFOL (Verified Allergy, Severe, Anxiety, 07/20/19) chest feels like on fire SULFA (SULFONAMIDE ANTIBIOTICS) (Verified Allergy, Severe, hives, 07/20/19) CODEINE (Verified Allergy, Unknown, 07/20/19) Objective Last 24 Hour Vital Signs Date Time Temp Pulse Resp B/P (MAP) Pulse Ox O2 Delivery O2 Flow Rate FiO2 07/21/19 09:00 Nasal Cannula 3.0 07/21/19 09:00 111 99/47 07/21/19 08:00 97.9 111 22 99/47 (64) 98 07/21/19 08:00 111 07/21/19 07:57 82 20 98 Nasal Cannula 3.0 32 78 20 96 07/21/19 04:00 92 07/21/19 04:00 98.2 110 16 106/61 (76) 98 07/21/19 03:30 91 20 93 Nasal Cannula 3.0 32 90 20 93 07/21/19 00:00 119 07/21/19 00:00 98.1 117 18 135/76 (95) 100 07/20/19 23:45 119 20 98 Nasal Cannula 3.0 32 110 22 97 07/20/19 23:45 110 22 97 Nasal Cannula 3.0 32 07/20/19 20:00 101 07/20/19 20:00 Nasal Cannula 3.0 07/20/19 20:00 98.1 111 18 109/64 (79) 07/20/19 16:00 Nasal Cannula 3.0 07/20/19 16:00 93 07/20/19 16:00 3.0 Intake and Output 07/20/19 07/21/19 19:00 07:00 Intake Total 225 ml 325 ml Balance 225 ml 325 ml IV Total 225 ml 325 ml # Voids 1 2 # Bowel Movements 3 1 General Appearance: WD/WN HEENT: normocephalic, atraumatic Respiratory/Chest: chest wall non-tender, lungs clear Breasts: no masses Cardiovascular: normal peripheral pulses Abdomen: normal bowel sounds, no organomegaly Genitourinary: normal external genitalia Extremities: no cyanosis Neurologic/Psychiatric: musculoskeletal physician II-XII grossly normal Microbiology Date/Time Source Procedure Growth Status 07/19/19 21:15 Blood Blood Culture - Preliminary Resulted 07/19/19 21:00 Blood Blood Culture - Preliminary Resulted 07/19/19 21:10 Nasal Nares - Final Complete 07/19/19 21:10 Nasal Nares - Final Complete 07/19/19 23:00 Stool Clostridium difficile Toxin Assay - Final Complete 07/19/19 23:00 Stool Stool Culture - Preliminary NORMAL FECAL MAEVE. Resulted 07/19/19 23:00 Urine,Clean Catch Urine Culture - Preliminary Gram Negative Bacillus 1 Resulted Laboratory Tests 07/21/19 05:56: White Blood Count 20.1H, Red Blood Count 2.94L, Hemoglobin 8.8L, Hematocrit 27.0L, Mean Corpuscular Volume 92, Mean Corpuscular Hemoglobin 29.8, Mean Corpuscular Hemoglobin Concent 32.5, Red Cell Distribution Width 14.8, Platelet Count 103L, Mean Platelet Volume 7.4, Neutrophils (%) (Auto) , Lymphocytes (%) ( Auto) , Monocytes (%) (Auto) , Eosinophils (%) (Auto) , Basophils (%) (Auto) , Differential Total Cells Counted 100, Neutrophils % (Manual) 76H, Lymphocytes % (Manual) 7L, Monocytes % (Manual) 6, Eosinophils % (Manual) 0, Basophils % ( Manual) 0, Band Neutrophils 11H, Platelet Estimate DecreasedL, Platelet Morphology Normal, Anisocytosis 1+, Prothrombin Time 16.0H, Prothromb Time International Ratio 1.5H, Activated Partial Thromboplast Time 91H, Sodium Level 140, Potassium Level 4.4, Chloride Level 112H, Carbon Dioxide Level 15L, Anion Gap 13, Blood Urea Nitrogen 52H, Creatinine 1.7H, Estimat Glomerular Filtration Rate , Glucose Level 221H, Uric Acid [Pending], Calcium Level 8.3L, Iron Level 9L, Total Iron Binding Capacity 118L, Percent Iron Saturation 8L, Unsaturated Iron Binding 109L, Total Bilirubin 0.2, Aspartate Amino Transf (AST/SGOT) 14L, Alanine Aminotransferase (ALT/SGPT) 17, Alkaline Phosphatase 121H, Total Creatine Kinase [Pending], Total Protein 5.9L, Albumin 1.6L, Globulin 4.3, Albumin/Globulin Ratio 0.4L, Amylase Level 13L, Lipase 68L, Vitamin B12 Level > 2000H, Folate 50.5 Current Medications Medications (Trade) Dose Ordered Sig/Francy Route PRN Reason Start Time Stop Time Status Last Admin Dose Admin Acetaminophen (Tylenol) 650 mg Q4H PRN ORAL fever 07/20/19 06:45 08/19/19 06:44 Albuterol/ Ipratropium (Albuterol/ Ipratropium) 3 ml Q4HRT HHN 07/20/19 23:00 07/25/19 22:59 07/21/19 11:38 Alprazolam (Xanax) 0.5 mg THREE TIMES A DAY PRN ORAL Agitation 07/20/19 07:45 07/27/19 07:44 07/20/19 10:32 Amlodipine Besylate (Norvasc) 5 mg DAILY ORAL 07/20/19 09:00 08/19/19 08:59 Atorvastatin Calcium (Lipitor) 20 mg BEDTIME ORAL 07/20/19 21:00 08/19/19 20:59 07/20/19 21:25 Ciprofloxacin 200 ml @ 200 mls/hr Q24H IV 07/20/19 22:00 07/27/19 21:59 07/20/19 22:54 Dextrose (Dextrose 50%) 25 ml Q30M PRN IV Hypoglycemia 07/20/19 06:45 08/19/19 06:44 Dextrose/Sodium Chloride 1,000 ml @ 75 mls/hr [id number] IV 07/20/19 10:00 08/19/19 09:59 07/21/19 11:58 Diphenhydramine HCl (Benadryl) 25 mg Q6H PRN ORAL Itching/Pruritis 07/20/19 06:45 08/19/19 06:44 Hydrochlorothiazide (Hydrodiuril) 25 mg DAILY ORAL 07/20/19 09:00 08/19/19 08:59 07/21/19 10:05 Insulin Aspart (NovoLOG) BEFORE MEALS AND HS SUBQ 07/20/19 11:30 08/19/19 11:29 07/21/19 11:59 Iron Sucrose 200 mg/Sodium Chloride 120 ml @ 240 mls/hr ONCE IV 07/21/19 21:00 07/21/19 22:00 Metronidazole 100 ml @ 100 mls/hr Q12HR IVPB 07/20/19 09:00 07/27/19 08:59 07/21/19 10:51 Morphine Sulfate (Morphine Sulfate) 2 mg Q4H PRN IVP severe Pain (Pain Scale 7-10) 07/20/19 06:45 07/27/19 06:44 Nitroglycerin (Ntg) 0.4 mg Q5M X 3 DOSES PRN SL Prn Chest Pain 07/20/19 06:45 08/19/19 06:44 Ondansetron HCl (Zofran) 4 mg Q6H PRN IVP Nausea & Vomiting 07/20/19 06:45 08/19/19 06:44 Polyethylene Glycol (Miralax) 17 gm HSPRN PRN ORAL Constipation 07/20/19 06:45 08/19/19 06:44 Promethazine HCl (Phenergan Plain) 6.25 mg Q6H PRN ORAL For Cough 07/20/19 10:15 08/19/19 10:14 Temazepam (Restoril) 15 mg HSPRN PRN ORAL Insomnia 07/20/19 06:45 07/27/19 06:44 Alejandrina Acosta MD Jul 21, 2019 12:40
--- NOTE | 2019-07-21 13:00 | NUR ---
NURSE NOTES: Report given to Joey/BERONICA at [facility]. Patient waiting to be transferred to [place].
[2019-07-21 13:05] LABS: CREATINE KINASE 35 U/L (26-308)
--- NOTE | 2019-07-21 13:17 | General Progress Note ---
Assessment/Plan Status: doing well, stable Assessment/Plan: Anemia leukocytosis low PLT RI DM elevated ALP low albumin coagulopathy gallstones diverticulosis ? GIB fu H&H anemia work up>>> iron def start IV iron abd us>>> reviewed VIT K stool ob EGD and colonoscopy for tomorrow Subjective ROS Limited/Unobtainable: Yes Allergies: Coded Allergies: IODINE (Verified Allergy, Severe, itching/ swelling, 07/20/19) PENICILLINS (Verified Allergy, Severe, SOB/ swelling, 07/20/19) PROPOFOL (Verified Allergy, Severe, Anxiety, 07/20/19) chest feels like on fire SULFA (SULFONAMIDE ANTIBIOTICS) (Verified Allergy, Severe, hives, 07/20/19) CODEINE (Verified Allergy, Unknown, 07/20/19) Objective Last 24 Hour Vital Signs Date Time Temp Pulse Resp B/P (MAP) Pulse Ox O2 Delivery O2 Flow Rate FiO2 07/21/19 09:00 Nasal Cannula 3.0 07/21/19 09:00 111 99/47 07/21/19 08:00 97.9 111 22 99/47 (64) 98 07/21/19 08:00 111 07/21/19 07:57 82 20 98 Nasal Cannula 3.0 32 78 20 96 07/21/19 04:00 92 07/21/19 04:00 98.2 110 16 106/61 (76) 98 07/21/19 03:30 91 20 93 Nasal Cannula 3.0 32 90 20 93 07/21/19 00:00 119 07/21/19 00:00 98.1 117 18 135/76 (95) 100 07/20/19 23:45 119 20 98 Nasal Cannula 3.0 32 110 22 97 07/20/19 23:45 110 22 97 Nasal Cannula 3.0 32 07/20/19 20:00 101 07/20/19 20:00 Nasal Cannula 3.0 07/20/19 20:00 98.1 111 18 109/64 (79) 07/20/19 16:00 Nasal Cannula 3.0 07/20/19 16:00 93 07/20/19 16:00 3.0 Intake and Output 07/20/19 07/21/19 19:00 07:00 Intake Total 225 ml 325 ml Balance 225 ml 325 ml IV Total 225 ml 325 ml # Voids 1 2 # Bowel Movements 3 1 Laboratory Tests 07/21/19 05:56: White Blood Count 20.1H, Red Blood Count 2.94L, Hemoglobin 8.8L, Hematocrit 27.0L, Mean Corpuscular Volume 92, Mean Corpuscular Hemoglobin 29.8, Mean Corpuscular Hemoglobin Concent 32.5, Red Cell Distribution Width 14.8, Platelet Count 103L, Mean Platelet Volume 7.4, Neutrophils (%) (Auto) , Lymphocytes (%) ( Auto) , Monocytes (%) (Auto) , Eosinophils (%) (Auto) , Basophils (%) (Auto) , Differential Total Cells Counted 100, Neutrophils % (Manual) 76H, Lymphocytes % (Manual) 7L, Monocytes % (Manual) 6, Eosinophils % (Manual) 0, Basophils % ( Manual) 0, Band Neutrophils 11H, Platelet Estimate DecreasedL, Platelet Morphology Normal, Anisocytosis 1+, Prothrombin Time 16.0H, Prothromb Time International Ratio 1.5H, Activated Partial Thromboplast Time 91H, Sodium Level 140, Potassium Level 4.4, Chloride Level 112H, Carbon Dioxide Level 15L, Anion Gap 13, Blood Urea Nitrogen 52H, Creatinine 1.7H, Estimat Glomerular Filtration Rate , Glucose Level 221H, Uric Acid 10.3H, Calcium Level 8.3L, Iron Level 9L, Total Iron Binding Capacity 118L, Percent Iron Saturation 8L, Unsaturated Iron Binding 109L, Total Bilirubin 0.2, Aspartate Amino Transf (AST/SGOT) 14L, Alanine Aminotransferase (ALT/SGPT) 17, Alkaline Phosphatase 121H, Total Creatine Kinase 35, Total Protein 5.9L, Albumin 1.6L, Globulin 4.3, Albumin/ Globulin Ratio 0.4L, Amylase Level 13L, Lipase 68L, Vitamin B12 Level > 2000H, Folate 50.5 Height (Feet): 5 Height (Inches): 4.00 Weight (Pounds): 228 General Appearance: alert EENT: normal ENT inspection Neck: supple Cardiovascular: normal rate Respiratory/Chest: decreased breath sounds Abdomen: normal bowel sounds, non tender, soft Extremities: non-tender Haile Kaba MD Jul 21, 2019 13:17
[2019-07-21] MEDS ORDERED: Phytonadione 1 MG in D5W 55 ML IVPB ONE (15:00)
[2019-07-21 16:00] VITALS: BP 117/63
[2019-07-21] MEDS ORDERED: Nulytely 4L ORAL SCH (16:00)
--- NOTE | 2019-07-21 16:50 | NUR ---
NURSE NOTES: Called [facility] [phone], and report given to Alexa/KULDEEP
[2019-07-21] MEDS ORDERED: D5 1/2NS 1000ml IV ONE (18:44)
[2019-07-21] MEDS ORDERED: Tubing IV Secondary IV ONE (18:44)
--- NOTE | 2019-07-21 19:16 | Internal Med Progress Note ---
Subjective Date of Service: Jul 21, 2019 Physician Name Kendrick Aguilar Attending Physician Yomi Puri MD Allergies: Coded Allergies: IODINE (Verified Allergy, Severe, itching/ swelling, 07/20/19) PENICILLINS (Verified Allergy, Severe, SOB/ swelling, 07/20/19) PROPOFOL (Verified Allergy, Severe, Anxiety, 07/20/19) chest feels like on fire SULFA (SULFONAMIDE ANTIBIOTICS) (Verified Allergy, Severe, hives, 07/20/19) CODEINE (Verified Allergy, Unknown, 07/20/19) ROS Limited/Unobtainable: No Constitutional: Reports: no symptoms HEENT: Reports: no symptoms Cardiovascular: Reports: no symptoms Respiratory: Reports: no symptoms Gastrointestinal/Abdominal: Reports: abdominal pain, diarrhea Genitourinary: Reports: no symptoms Subjective 74 YO F admitted with abdominal pain and diarrhea. Cover for Int med-Dr Puri Objective Last Vital Signs Date Time Temp Pulse Resp B/P (MAP) Pulse Ox O2 Delivery O2 Flow Rate FiO2 07/21/19 16:00 97.9 20 22 117/63 (81) 97 07/21/19 09:00 Nasal Cannula 3.0 07/21/19 07:57 32 Laboratory Tests Test 07/21/19 05:56 White Blood Count 20.1 K/UL (4.8-10.8) H Red Blood Count 2.94 M/UL (4.20-5.40) L Hemoglobin 8.8 G/DL (12.0-16.0) L Hematocrit 27.0 % (37.0-47.0) L Mean Corpuscular Volume 92 FL (80-99) Mean Corpuscular Hemoglobin 29.8 PG (27.0-31.0) Mean Corpuscular Hemoglobin Concent 32.5 G/DL (32.0-36.0) Red Cell Distribution Width 14.8 % (11.6-14.8) Platelet Count 103 K/UL (150-450) L Mean Platelet Volume 7.4 FL (6.5-10.1) Neutrophils (%) (Auto) % (45.0-75.0) Lymphocytes (%) (Auto) % (20.0-45.0) Monocytes (%) (Auto) % (1.0-10.0) Eosinophils (%) (Auto) % (0.0-3.0) Basophils (%) (Auto) % (0.0-2.0) Differential Total Cells Counted 100 Neutrophils % (Manual) 76 % (45-75) H Lymphocytes % (Manual) 7 % (20-45) L Monocytes % (Manual) 6 % (1-10) Eosinophils % (Manual) 0 % (0-3) Basophils % (Manual) 0 % (0-2) Band Neutrophils 11 % (0-8) H Platelet Estimate Decreased L Platelet Morphology Normal Anisocytosis 1+ Prothrombin Time 16.0 SEC (9.30-11.50) H Prothromb Time International Ratio 1.5 (0.9-1.1) H Activated Partial Thromboplast Time 91 SEC (23-33) H Sodium Level 140 MMOL/L (136-145) Potassium Level 4.4 MMOL/L (3.5-5.1) Chloride Level 112 MMOL/L (98-107) H Carbon Dioxide Level 15 MMOL/L (21-32) L Anion Gap 13 mmol/L (5-15) Blood Urea Nitrogen 52 mg/dL (7-18) H Creatinine 1.7 MG/DL (0.55-1.30) H Estimat Glomerular Filtration Rate mL/min (>60) Glucose Level 221 MG/DL (74-106) H Uric Acid 10.3 MG/DL (2.6-7.2) H Calcium Level 8.3 MG/DL (8.5-10.1) L Iron Level 9 ug/dL (50-175) L Total Iron Binding Capacity 118 ug/dL (250-450) L Percent Iron Saturation 8 % (15-50) L Unsaturated Iron Binding 109 ug/dL (112-346) L Total Bilirubin 0.2 MG/DL (0.2-1.0) Aspartate Amino Transf (AST/SGOT) 14 U/L (15-37) L Alanine Aminotransferase (ALT/SGPT) 17 U/L (12-78) Alkaline Phosphatase 121 U/L (46-116) H Total Creatine Kinase 35 U/L (26-308) Total Protein 5.9 G/DL (6.4-8.2) L Albumin 1.6 G/DL (3.4-5.0) L Globulin 4.3 g/dL Albumin/Globulin Ratio 0.4 (1.0-2.7) L Amylase Level 13 U/L (25-115) L Lipase 68 U/L (73-393) L Vitamin B12 Level > 2000 PG/ML (193-986) H Folate 50.5 NG/ML (8.6-58.9) Microbiology Date/Time Source Procedure Growth Status 07/19/19 21:15 Blood Blood Culture - Preliminary Resulted 07/19/19 21:00 Blood Blood Culture - Preliminary Resulted 07/19/19 21:10 Nasal Nares - Final Complete 07/19/19 21:10 Nasal Nares - Final Complete 07/19/19 23:00 Stool Clostridium difficile Toxin Assay - Final Complete 07/19/19 23:00 Stool Stool Culture - Preliminary NORMAL FECAL MAEVE. Resulted 07/19/19 23:00 Urine,Clean Catch Urine Culture - Preliminary Gram Negative Bacillus 1 Resulted Intake and Output 07/20/19 07/21/19 19:00 07:00 Intake Total 225 ml 325 ml Balance 225 ml 325 ml IV Total 225 ml 325 ml # Voids 1 2 # Bowel Movements 3 1 Objective PHYSICAL EXAMINATION: GENERAL: The patient is a well-developed and well-nourished female, in no apparent distress. HEENT: Eyes, pupils are equal and responsive to light and accommodation. Extraocular movements are intact. NECK: Supple without lymphadenopathy. CHEST: Lungs are clear to auscultation bilaterally without wheezes or rales. CARDIOVASCULAR: Regular rhythm and rate. S1-S2 are normal without murmurs, rubs, or gallops. ABDOMEN: Soft, diffusely tender with positive bowel sounds. No evidence of hepatosplenomegaly. Currently, no rebound or guarding noted. EXTREMITIES: Negative for clubbing, cyanosis, or edema. RECTAL/GENITAL: Not performed. NEUROLOGICAL: Cranial nerves II through XII are grossly intact without focal deficits. Motor strength is 5/5 bilaterally. Deep tendon reflexes are 2+ plantar. Assessment/Plan Assessment/Plan ASSESSMENT: This is a 74-year-old female with: 1. Abdominal pain. 2. Diarrhea. 3. Renal insufficiency. 4. Leukocytosis. 5. Diabetes type 2. 6. Hypertension. 7. History of pulmonary embolism. TREATMENT: 1. Abdominal pain/diarrhea. A Gastroenterology consultation has been obtained with Dr. Haile Kaba. Differential includes enterocolitis versus possible gastrointestinal hemorrhage. We will follow recommendations of Gastroenterology. The patient has been started empirically on ciprofloxacin and Flagyl for possible colitis. 2. Renal insufficiency. This may be secondary to diabetic nephropathy versus acute dehydration. The patient is currently receiving intravenous fluids. 3. Leukocytosis. 4. Diabetes type 2. A NovoLog sliding scale has been instituted. 5. Hypertension. Continue amlodipine as above. 6. History of pulmonary embolism. The patient is unsure of her anticoagulant. The patient is a [facility] patient. We are attempting to contact [facility] for dosage and name of anticoagulation. 7. Transfer to [facility] when bed available Kendrick Aguilar MD Jul 21, 2019 19:15
--- NOTE | 2019-07-21 19:35 | NUR ---
NURSE NOTES: Patient transferred to [facility], patient is in stable condition, quality assurance monitor body removed, no acute distress/SOB noted. Belonging given to live in caregiver. Wound site cleaned and changed dressing. Wound picture taken per protocol. Patient taken by ambulance personnel via gurney.
[2019-07-21] MEDS ORDERED: Iron Sucrose 200 MG in NS 110 ML IV SCH (21:00)
--- NOTE | 2019-07-22 08:37 | Diagnostic Imaging Report ---
Indication: Abnormal renal function tests Technique: Grayscale and duplex images of the kidneys, retroperitoneum, and bladder were obtained. Comparison: none Findings: Right kidney measures 9.7 cm in length. Left kidney measures 10.7 cm in length. Both kidneys demonstrate normal echogenicity. No hydronephrosis. No focal abnormality. Normal inferior vena cava. Bladder is normal. Impression: negative.
[2019-07-22] MEDS ORDERED: Iron Sucrose 100 MG in NS 55 ML IV SCH (21:00)
--- NOTE | 2019-07-23 15:19 | Discharge Summary ---
Discharge Summary Discharge Summary _ DATE OF ADMISSION: 07/20/2019 DATE OF DISCHARGE: 07/21/2019 DISCHARGED BY: Dr. Puri REASON FOR ADMISSION: 74 years old female with past medical history of hypertension, diabetes mellitus, was brought by paramedics from home, complaining of abdominal pain with vomiting and diarrhea for 1 week. Patient reported watery loose stools. Abdominal pain reported sharp , nonradiating, 9 out of 10. Patient also noted blood in the stool. Patient was on blood thinners for PE. No fever or chills. No chest pain or SOB. Upon evaluation patient was tachycardic with heart rate 112 , pulse oximetry was stable on oxygen 2 L via nasal cannula. Laboratory work-up revealed leukocytosis WBC 13.1 ,hemoglobin 9.2, hematocrit 27.7, platelet count 138. Potassium 5.4. BUN 45, creatinine 1.7. Lactic acid 2.9. Glucose 236. Stable LFT. Albumin 2.2. INR 1.7 Urinalysis revealed pyuria, many bacteria, +3 leukocyte esterase, +4 protein. EKG revealed atrial fibrillation with rapid ventricular response . Chest x-ray revealed possible small left pleural effusion. Apparent cardiomegaly. CT of the abdomen and pelvis demonstrated suspected gallstones. Diverticulosis of colon with no definite diverticulitis. Perinephric stranding, left more than right. Calcified uterine fibroids. Arteriovascular disease. Degenerative changes of the spine. ABG showed acidosis with compensation. Patient was not safe for transfer to [facility]. Patient subsequently admitted to telemetry floor for further management. CONSULTANTS: pulmonary/critical care [facility] COURSE: Patient admitted to telemetry floor. Patient started on the IV fluids and was kept n.p.o. GI specialist consulted. Symptomatic treatment provided . Abdominal ultrasound revealed no acute findings. Gallbladder sludge noted. No hydronephrosis . Renal parameters and electrolytes were closely monitored . Renal ultrasound was negative . Both kidney demonstrated normal echogenicity , no evidence of hydronephrosis, no focal abnormalities. Nephrotoxic's were avoided. Venous duplex bilateral lower extremity revealed no evidence of acute DVT. Supplemental oxygen provided and titrated to keep oximetry above 92%. Pulmonary toilet with bronchodilator was on board as needed. Echocardiogram was pending. Blood culture revealed gram negative rods, and at the time of this dictation showed growth og E. coli . Stool culture was negative . Stool for C. difficile was negative. Urine culture also revealed E. coli. Patient was on broad spectrum antibiotics. Blood sugar was managed with sliding scale of insulin. Blood pressure was managed with calcium channel cortez and hydrochlorothiazide . Patient received vitamin K and INR from 1.7 down to 1.5. Hyperkalemia corrected. Hemoglobin and hematocrit were closely monitored with goal to keep hemoglobin above 7, prior to transfer hemoglobin 8.8, hematocrit 27. Anemia work-up revealed evidence of iron deficiency anemia, and patient started on the IV iron . Stable folate and B12 level. Patient was scheduled for EGD and colonoscopy the next day. Bed became available at [facility] , and patient was stable for transfer as per insurance affiliated facility. FINAL DIAGNOSES: Sepsis with E. coli bacteremia likely due to UTI E. coli UTI Possible lower GI bleeding Coagulopathy, probably due to chronic anticoagulation ( due to history of PE) Gallstones Diverticulosis Abdominal pain Diarrhea Renal insufficiency Diabetes mellitus type 2 Hypertension Anemia of iron deficiency DISCHARGE MEDICATIONS: List of medication was sent to accepting facility DISCHARGE INSTRUCTIONS: Patient was discharged to [facility] as per insurance. Follow-up with the medical provider at the facility I have been assigned to dictate discharge summary for this account. I was not involved in the patient's management. Tahmina Clark NP Jul 23, 2019 15:19
== END 2019-07-21 18:45 | disposition short-term general hospital (02) | DRG 872 ==
LOC: EDBD 20:29 → EMR 21:00 → 2W 07-20 01:40 → EDBEDREQ 07-20 02:10 → 2W 07-20 04:11 → 2E 07-20 13:05
DX: A41.9 Sepsis, unspecified organism (principal); K92.2 Gastrointestinal hemorrhage, unspecified; N39.0 Urinary tract infection, site not specified; D68.32 Hemorrhagic disorder due to extrinsic circulating anticoagulants; Z86.711 Personal history of pulmonary embolism; I10 Essential (primary) hypertension; B96.20 Unspecified Escherichia coli [E. coli] as the cause of diseases classified elsewhere; K80.80 Other cholelithiasis without obstruction; K57.90 Diverticulosis of intestine, part unspecified, without perforation or abscess without bleeding; R10.9 Unspecified abdominal pain; I12.9 Hypertensive chronic kidney disease with stage 1 through stage 4 chronic kidney disease, or unspecified chronic kidney disease; E11.22 Type 2 diabetes mellitus with diabetic chronic kidney disease; N18.9 Chronic kidney disease, unspecified; D50.9 Iron deficiency anemia, unspecified; Z88.6 Allergy status to analgesic agent; Z88.0 Allergy status to penicillin; Z88.2 Allergy status to sulfonamides; Z88.8 Allergy status to other drugs, medicaments and biological substances; K52.9 Noninfective gastroenteritis and colitis, unspecified; I48.91 Unspecified atrial fibrillation; E86.0 Dehydration
CPT/HCPCS: 36415; 36600; 71045; 74176; 76700; 76770; 80053; 81003; 82150; 82550; 82607; 82746; 82803; 82962; 83540; 83550; 83605; 83690; 83735; 83880; 84100; 84550; 85007; 85025; 85610; 85651; 85730; 86710; 86850; 86900; 86901; 87040; 87045; 87086; 87181; 87324; 93005; 93970; 94640; 94664; 96361; 96365; 96375; 99291; J1815; J3430; J7030; J7620